=== PATIENT | male | born 1980 | race Two or more races ===

== ENCOUNTER 2020-06-10 21:04 | Emergency (ER) | payer MEDICAID, OTHER ==
[~2020-06-10] VITALS: Ht 177.8 cm; Wt 117.9 kg
[2020-06-11] MEDS ORDERED: KETOROLAC TROMETH 60MG/2ML VIAL IM ONE (01:00)
[2020-06-11 01:16] VITALS: BP 136/75
== END 2020-06-11 01:55 | disposition home or self-care (01) ==
LOC: ER 21:14
DX: S39.012A Strain of muscle, fascia and tendon of lower back, initial encounter (principal); M54.41 Lumbago with sciatica, right side; M54.42 Lumbago with sciatica, left side; M43.8X4 Other specified deforming dorsopathies, thoracic region; X58.XXXA Exposure to other specified factors, initial encounter; Y93.89 Activity, other specified; Y92.89 Other specified places as the place of occurrence of the external cause; Y99.8 Other external cause status
CPT/HCPCS: 72080; 96372; 99283; J1885